=== PATIENT | male | born 1985 | race Caucasian/White ===

== ENCOUNTER 2018-08-30 12:19 | Emergency (ER) | payer OTHER ==
[~2018-08-30] VITALS: Ht 182.9 cm; Wt 148.8 kg
[2018-08-30 12:28] VITALS: BP 142/92
--- NOTE | 2018-08-30 12:45 | NUR ---
Patient discharged to home in stable condition. Written and verbal after care instructions given. Patient verbalizes understanding of instruction.
== END 2018-08-30 12:47 | disposition home or self-care (01) ==
LOC: ER 12:24
DX: H60.8X2 Other otitis externa, left ear (principal)
CPT/HCPCS: 99283; A4606; Z7610